=== PATIENT | female | born 1995 | race Caucasian/White ===

== ENCOUNTER 2017-10-24 16:48 | Emergency (ER) | payer OTHER ==
[2017-10-24] MEDS ORDERED: HYDROcod/ACETAM 5/325 MG TABLET PO STA ×2 (17:00→19:07)
--- NOTE | 2017-10-24 17:02 | ED Physician Documentation ---
PD HPI BACK PAIN - Stated complaint Stated Complaint: LOWER BACK PX - Chief complaint Chief Complaint: Back Pain - History obtained from History obtained from: Patient, Family () - History of Present Illness Timing - onset: Other (About 3 days of bilateral flank pain radiating like a band across the back. There was no antecedent injury. She says it feels like prior renal colic which she has had several times including bilateral renal colic at the same time. She has not been nauseous. There is a possibility of , she had an IUD removed about 2 months ago and they are not using any protection other than pulling out.) Review of Systems Ten Systems: 10 systems reviewed and negative Constitutional: denies: Fever, Chills GI: denies: Abdominal Pain, Nausea, Vomiting, Diarrhea : reports: Frequency. denies: Dysuria PD PAST MEDICAL HISTORY - Present Medications Home Medications: Ambulatory Orders Medication Instructions Recorded Confirmed HYDROcod/ACETAM 5/325 [[place] 5/325] 1 - 2 ea PO Q6H PRN #15 tablet 10/24/17 Ibuprofen [Motrin] 800 mg PO Q8H PRN #30 tablet 10/24/17 Ondansetron HCl [Zofran] 4 mg PO Q6H PRN #10 tablet 10/24/17 - Allergies Allergies/Adverse Reactions: Allergies Allergy/AdvReac Type Severity Reaction Status Date / Time No Known Drug Allergies Allergy Verified 10/24/17 16:59 PD ED PE NORMAL - Vitals Vital signs reviewed: Yes - General General: Alert and oriented X 3, No acute distress - Cardiac Cardiac: RRR, No murmur - Respiratory Respiratory: No respiratory distress, Clear bilaterally - Abdomen Abdomen: Normal bowel sounds, Soft, Non tender - Back Back: No spinal TTP, Other (Mild bilateral flank tenderness) - Neuro Neuro: Alert and oriented X 3, Normal speech - Psych Psych: Normal mood, Normal affect Results - Vitals Vitals: Vital Signs - 24 hr 10/24/17 10/24/17 16:56 21:49 Temperature 36.7 C 37.1 C Heart Rate 116 H 89 Respiratory 20 20 Rate Blood Pressure 157/87 H 125/72 O2 Saturation 98 100 Oxygen O2 Source Room air - Labs Labs: Laboratory Tests 10/24/17 10/24/17 10/24/17 17:12 17:12 17:12 WBC 13.0 H RBC 5.28 Hgb 15.3 Hct 46.0 MCV 87.1 MCH 29.0 MCHC 33.3 RDW 13.2 Plt Count 431 MPV 7.6 L Neut # 10.0 H Lymph # 2.1 [place] # 0.7 Eos # 0.1 Baso # 0.1 Absolute Nucleated RBC 0.00 Nucleated RBC % 0.0 Sodium 140 Potassium 3.7 Chloride 102 Carbon Dioxide 21 Anion Gap 17.0 H BUN 16 Creatinine 0.8 Estimated GFR (MDRD) 90 Glucose 88 Calcium 9.5 Total Bilirubin 0.5 AST 19 ALT 20 Alkaline Phosphatase 93 Total Protein 8.7 H Albumin 4.2 Globulin 4.5 H Albumin/Globulin Ratio 0.9 L Lipase 19 L Serum HCG, Qual NEGATIVE Urine Color Urine Clarity Urine pH Ur Specific [place] Urine Protein Urine Glucose (UA) Urine Ketones Urine Occult Blood Urine Nitrite Urine Bilirubin Urine Urobilinogen Ur Leukocyte Esterase Urine RBC Urine WBC Ur Squamous Epith Cells Amorphous Sediment Urine Bacteria Urine Mucus Ur Microscopic Review Urine Culture Comments 10/24/17 21:15 WBC RBC Hgb Hct MCV MCH MCHC RDW Plt Count MPV Neut # Lymph # [place] # Eos # Baso # Absolute Nucleated RBC Nucleated RBC % Sodium Potassium Chloride Carbon Dioxide Anion Gap BUN Creatinine Estimated GFR (MDRD) Glucose Calcium Total Bilirubin AST ALT Alkaline Phosphatase Total Protein Albumin Globulin Albumin/Globulin Ratio Lipase Serum HCG, Qual Urine Color YELLOW Urine Clarity CLEAR Urine pH 6.0 Ur Specific [place] >=1.030 H Urine Protein NEGATIVE Urine Glucose (UA) NEGATIVE Urine Ketones 15 H Urine Occult Blood SMALL H Urine Nitrite NEGATIVE Urine Bilirubin NEGATIVE Urine Urobilinogen 0.2 (NORMAL) Ur Leukocyte Esterase NEGATIVE Urine RBC 6-10 H Urine WBC 0-3 Ur Squamous Epith Cells MOD Squamous H Amorphous Sediment Few Urine Bacteria Rare Urine Mucus Few Strands Ur Microscopic Review INDICATED Urine Culture Comments NOT INDICATED - Rads (name of study) CT KUB Radiology: EMP read contemporaneously (Bilateral renal stones without ureteral stone, diverticula.) PD MEDICAL DECISION MAKING - ED course ED course: 22-year-old woman presents with bilateral flank pain, most consistent with musculoskeletal etiology. Normal neurologic exam. She does have a history of renal colic and feels like this is similar though. There was some odd behaviors of this patient and her who are notably new to the area including requesting catheterized urinalysis well in triage which I find a little unnerving in this otherwise healthy 22-year-old woman. She persistently refused to be able to urinate here and persistently requesting urinary catheterization. She claims to vomited shortly after taking the Vicodin and requested it be repeated, although nobody saw her vomit. This was followed by IM Toradol and P.o. Zofran. CT was obtained after negative serum test showing no ureteral calculi. The diverticula noted are not consistent with her current clinical presentation. On repeat examination prior to discharge she had significant improvement in her vital signs, both the tachycardia and hypertension and had passed an oral challenge. Departure - Departure Disposition: Home, Self Care Clinical Impression: Back pain Qualifiers: Back pain location: low back pain Chronicity: acute Back pain laterality: bilateral Sciatica presence: without sciatica Qualified Code(s): M54.5 - Low back pain Condition: Good Record reviewed to determine appropriate education?: Yes Instructions: ED Spasm Back No Trauma Prescriptions: HYDROcod/ACETAM 5/325 [[place] 5/325] 1 - 2 ea PO Q6H PRN #15 tablet PRN Reason: Pain Ibuprofen [Motrin] 800 mg PO Q8H PRN #30 tablet PRN Reason: PAIN &/OR FEVER Ondansetron HCl [Zofran] 4 mg PO Q6H PRN #10 tablet PRN Reason: Nausea / Vomiting Comments: Call your doctor to arrange a follow-up appointment, make the next available appointment. In the interim, return anytime if worse or if new symptoms develop. Your blood pressure was elevated today on check into the emergency department. This does not mean that you have hypertension, it is a common phenomenon to come to the emergency department and have elevated blood pressure. I recommend that you see your primary care physician within the week to have it rechecked when you are feeling better. Discharge Date/Time: 10/24/17 21:53
[2017-10-24 17:19] LABS: BASOPHILS # (AUTO) 0.1 10^3/uL (0.0-0.1); BASOPHILS % (AUTO) 0.4 %; EOSINOPHILS # (AUTO) 0.1 10^3/uL (0.0-0.7); EOSINOPHILS % (AUTO) 0.6 %; HGB - HEMOGLOBIN 15.3 g/dL (12.0-16.0); LYMPHOCYTES # (AUTO) 2.1 10^3/uL (1.5-3.5); LYMPHOCYTES % (AUTO) 16.1 %; MEAN CORPUSCULAR HGB CONC 33.3 g/dL (32.0-36.0); MEAN CORPUSCULAR VOLUME 87.1 fL (81.0-99.0); MEAN PLATELET VOLUME 7.6 fL (7.9-10.8); MONOCYTES # (AUTO) 0.7 10^3/uL (0.0-1.0); MONOCYTES % (AUTO) 5.6 %; NEUTROPHILS % (AUTO) 77.3 %; PLT - PLATELET COUNT 431 10^3/uL (130-450); RED BLOOD COUNT 5.28 10^6/uL (4.20-5.40); RED CELL DISTRIBUTION WIDTH 13.2 % (12.0-15.0)
[2017-10-24 17:31] LABS: ALBUMIN 4.2 g/dL (3.2-5.5); ALBUMIN/GLOBULIN RATIO 0.9 (1.0-2.2); BILIRUBIN,TOTAL 0.5 mg/dL (0.2-1.0); CALCIUM 9.5 mg/dL (8.5-10.3); CREATININE 0.8 mg/dL (0.4-1.0); TOTAL PROTEIN 8.7 g/dL (6.7-8.2)
[2017-10-24] MEDS ORDERED: ONDANSETRON ODT 4 MG TABLET TL STA (17:58)
[2017-10-24] MEDS ORDERED: KETOROLAC 60 MG/2 ML VIAL IM STA (17:59)
[2017-10-24 19:02] LABS: HCG,QUALITATIVE BLOOD NEGATIVE
--- NOTE | 2017-10-24 20:17 | CT Preliminary Report ---
Exam: CT ABDOMEN/PELVIS W/O IMPRESSION: 1. Nonobstructing bilateral renal stones. No obstructing ureteral stone. 2. Diverticula. Mildly prominent bowel wall thickness of the sigmoid and left colon in a incompletely distended segment of bowel. Long segment involvement with incomplete distention and minimal if any p ericolonic inflammation suggest that this is artifactual due to incomplete distention. Correlate clin ically for colitis symptoms. Normal appendix. [facility] SITE ID: [id number]
--- NOTE | 2017-10-24 21:11 | CT Report ---
EXAM: CT ABDOMEN AND PELVIS (CT KUB) EXAM DATE: 10/24/2017 07:36 PM. CLINICAL HISTORY: Flank pain. COMPARISONS: None. TECHNIQUE: Routine axial helical CT imaging was performed through the abdomen and pelvis without IV c ontrast. Reconstructions: Coronal and sagittal. In accordance with CT protocol optimization, one or more of the following dose reduction techniques w ere utilized for this exam: automated exposure control, adjustment of mA and/or KV based on patient s ize, or use of iterative reconstructive technique. FINDINGS: Lung Bases: Lung bases are clear. Incidental small hiatal hernia noted. Right Kidney/Ureter: 3 mm anterior right and 2 mm mid right nonobstructing renal stones. No hydroneph rosis, hydroureter or perinephric fat stranding. Left Kidney/Ureter: 2 mm mid left nonobstructing renal stone. No hydronephrosis, hydroureter or perin ephric fat stranding. Other Solid Organs: Noncontrast images of the solid organs are grossly unremarkable. Gallbladder/Bile Ducts: Unremarkable. Peritoneal Cavity: No free fluid, free air or [place] adenopathy. Bowel is grossly unremarkable. Diffus e colonic diverticula are noted. The left colon, distal transverse and sigmoid colon are incompletely distended likely accentuating the bowel wall thickness. Minimal pericolonic stranding is noted in th e region of the proximal sigmoid colon. Normal appendix. Pelvic Organs: No bladder stones or wall thickening. Noncontrast images of the visualized pelvic orga ns are unremarkable. Vasculature: Unremarkable. Other: None. IMPRESSION: 1. Nonobstructing bilateral renal stones. No obstructing ureteral stone. 2. Diverticula. Mildly prominent bowel wall thickness of the sigmoid and left colon in a incompletely distended segment of bowel. Long segment involvement with incomplete distention and minimal if any p ericolonic inflammation suggests that this is artifactual due to incomplete distention. Correlate cli nically for colitis symptoms. Normal appendix. [facility] Referring Provider Line: [phone] SITE ID: [id number]
[2017-10-24 21:32] LABS: BILIRUBIN,URINE NEGATIVE (NEGATIVE); GLUCOSE, URINE (UA) NEGATIVE (NEGATIVE); KETONES,URINE (UA) 15 mg/dL (NEGATIVE); LEUKOCYTE ESTERASE, URINE NEGATIVE (NEGATIVE); NITRITE,URINE NEGATIVE (NEGATIVE); OCCULT BLOOD,URINE SMALL (NEGATIVE); PROTEIN,URINE NEGATIVE (NEGATIVE); UROBILINOGEN,URINE 0.2 (NORMAL) E.U./dL (NORMAL)
[2017-10-24 21:34] LABS: CLARITY,URINE CLEAR (CLEAR)
[2017-10-24] MEDS ORDERED: HYDROcod/ACET 5/325 Prepack 6 PO STA (21:43)
[2017-10-24] MEDS ORDERED: ONDANSETRON ODT 4 MG Prepack 2 TL STA (21:43)
[2017-10-24 21:49] VITALS: BP 125/72
[2017-10-24 21:59] LABS: AMORPHOUS SEDIMENT,UR Few /LPF; BACTERIA,URINE Rare /HPF (None Seen); MUCUS,URINE Few Strands; SQUAMOUS EPITHELIAL CELL,UR MOD Squamous (<= Few)
== END 2017-10-24 21:53 | disposition home or self-care (01) ==
LOC: ED 16:48
DX: M54.5 Low back pain (principal); R03.0 Elevated blood-pressure reading, without diagnosis of hypertension
CPT/HCPCS: 36415; 51798; 74176; 80053; 81001; 83690; 84703; 85025; 96372; 99283; A9270; Q0162; 81003; 87086

== ENCOUNTER 2018-01-21 22:12 | Outpatient (CLI) | payer OTHER | END 2018-01-21 22:13 | disposition critical access hospital (66) | LOC: EMS 22:12 | PROVIDERS: ATTEND Surgery | DX: R07.9 Chest pain, unspecified (principal); R11.0 Nausea; R42 Dizziness and giddiness | CPT/HCPCS: A0425; A0429 ==

== ENCOUNTER 2018-01-21 22:33 | Emergency (ER) | payer OTHER ==
[2018-01-21 22:58] LABS: BASOPHILS # (AUTO) 0.1 10^3/uL (0.0-0.1); BASOPHILS % (AUTO) 0.7 %; EOSINOPHILS # (AUTO) 0.2 10^3/uL (0.0-0.7); EOSINOPHILS % (AUTO) 1.3 %; HGB - HEMOGLOBIN 13.9 g/dL (12.0-16.0); LYMPHOCYTES # (AUTO) 2.4 10^3/uL (1.5-3.5); LYMPHOCYTES % (AUTO) 20.4 %; MEAN CORPUSCULAR HGB CONC 32.5 g/dL (32.0-36.0); MEAN CORPUSCULAR VOLUME 86.2 fL (81.0-99.0); MEAN PLATELET VOLUME 7.5 fL (7.9-10.8); MONOCYTES # (AUTO) 1.1 10^3/uL (0.0-1.0); MONOCYTES % (AUTO) 9.2 %; NEUTROPHILS % (AUTO) 68.4 %; PLT - PLATELET COUNT 384 10^3/uL (130-450); RED BLOOD COUNT 4.96 10^6/uL (4.20-5.40); RED CELL DISTRIBUTION WIDTH 12.9 % (12.0-15.0); WHITE BLOOD COUNT 11.7 x10^3/uL (4.8-10.8)
[2018-01-21 23:10] LABS: ALBUMIN 3.8 g/dL (3.2-5.5); ALBUMIN/GLOBULIN RATIO 0.9 (1.0-2.2); ALKALINE PHOSPHATASE 98 IU/L (42-121); ALT ALANINE AMINOTRANSFERASE 31 IU/L (10-60); AST ASPARTATE AMINOTRANSFERASE 25 IU/L (10-42); BILIRUBIN,TOTAL 0.2 mg/dL (0.2-1.0); BUN - BLOOD UREA NITROGEN 22 mg/dL (6-20); CALCIUM 9.1 mg/dL (8.5-10.3); CARBON DIOXIDE - CO2 25 mmol/L (21-32); CHLORIDE 105 mmol/L (101-111); CREATININE 0.7 mg/dL (0.4-1.0); GFR - MDRD 105 (>89); GLUCOSE 113 mg/dL (70-100); LIPASE 26 U/L (22-51); SODIUM 137 mmol/L (135-145)
--- NOTE | 2018-01-21 23:15 | ED Physician Documentation ---
History of Present Illness - Stated complaint Stated Complaint: CP, RACING HEART SP MEDS - Chief complaint Chief Complaint: Cardiac - History obtained from History obtained from: Patient, EMS - History of Present Illness Timing: Today - Additonal information Additional information: Patient is a 22 year old female with a history of anxiety and depression who is presenting to the hospital for racing heart beat. patient states that she took her antidepressant tonight for the first time in awhile and feels like she developed right sided chest pain and nausea so patient called ems. Upon initial evaluation in the emergency department patient was awake, alert and in no distress. Review of Systems Constitutional: denies: Fever, Chills Eyes: reports: Reviewed and negative Ears: reports: Reviewed and negative Nose: denies: Rhinorrhea / runny nose Cardiac: reports: Palpitations. denies: Chest pain / pressure Respiratory: denies: Dyspnea, Cough, Wheezing GI: reports: Abdominal Pain, Nausea. denies: Vomiting, Constipation, Diarrhea : denies: Dysuria, Frequency, Hesitancy Skin: denies: Rash, Lesions Neurologic: denies: Generalized weakness, Focal weakness, Syncope, Headache Psychiatric: reports: Anxiety Immunocompromised: denies: Immunocompromised PD PAST MEDICAL HISTORY - Past Medical History Past Medical History: Yes : Kidney stones Psych: Anxiety - Past Surgical History Past Surgical History: Yes - Present Medications Home Medications: Ambulatory Orders Medication Instructions Recorded Confirmed Albuterol Sulfate [Proair Hfa 1 - 2 puffs INH PRN PRN 01/21/18 01/21/18 Inhaler] Venlafaxine ER [Effexor ER] 150 mg PO DAILY 01/21/18 01/21/18 - Allergies Allergies/Adverse Reactions: Allergies Allergy/AdvReac Type Severity Reaction Status Date / Time No Known Drug Allergies Allergy Verified 01/21/18 22:39 - Social History Does the pt smoke?: Yes Smoking Status: Current every day smoker Does the pt drink ETOH?: Yes Does the pt have substance abuse?: Yes - Immunizations Immunizations are current?: Yes - POLST Patient has POLST: No PD ED PE NORMAL - Vitals Vital signs reviewed: Yes - General General: Alert and oriented X 3, No acute distress - HEENT HEENT: Atraumatic, PERRL - Cardiac Cardiac: RRR - Respiratory Respiratory: No respiratory distress - Abdomen Abdomen: Soft - Derm Derm: Normal color, No rash - Extremities Extremities: No deformity - Neuro Neuro: Alert and oriented X 3, No motor deficit, Normal speech Eye Opening: Spontaneous Motor: Obeys Commands Verbal: Oriented GCS Score: 15 Results - Vitals Vitals: Vital Signs - 24 hr 01/21/18 01/21/18 01/21/18 22:34 22:40 23:18 Temperature 36.7 C Heart Rate 104 H 89 Respiratory 16 16 Rate Blood Pressure 138/94 H 125/77 Blood Pressure 138/94 H [Right] O2 Saturation 97 97 01/22/18 00:02 Temperature Heart Rate 94 Respiratory 20 Rate Blood Pressure 118/89 H Blood Pressure [Right] O2 Saturation 97 Oxygen O2 Source Room air - EKG (time done) 2240 Rate: Rate (enter#) (102) Rhythm: Sinus tachycardia [place]: Normal Intervals: Normal [place] QRS: Normal Ischemia: Normal ST segments Compare to prior EKG: Old EKG unavailable - Labs Labs: Laboratory Tests 01/21/18 01/21/18 01/21/18 22:51 22:51 23:25 WBC 11.7 H RBC 4.96 Hgb 13.9 Hct 42.7 MCV 86.2 MCH 28.0 MCHC 32.5 RDW 12.9 Plt Count 384 MPV 7.5 L Neut # 8.0 H Lymph # 2.4 [place] # 1.1 H Eos # 0.2 Baso # 0.1 Absolute Nucleated RBC 0.00 Nucleated RBC % 0.0 Sodium 137 Potassium 3.7 Chloride 105 Carbon Dioxide 25 Anion Gap 7.0 BUN 22 H Creatinine 0.7 Estimated GFR (MDRD) 105 Glucose 113 H Calcium 9.1 Total Bilirubin 0.2 AST 25 ALT 31 Alkaline Phosphatase 98 Total Protein 8.0 Albumin 3.8 Globulin 4.2 Albumin/Globulin Ratio 0.9 L Lipase 26 Urine Color YELLOW Urine Clarity CLEAR Urine pH 5.5 Ur Specific [place] >=1.030 H Urine Protein NEGATIVE Urine Glucose (UA) NEGATIVE Urine Ketones TRACE Urine Occult Blood SMALL H Urine Nitrite NEGATIVE Urine Bilirubin NEGATIVE Urine Urobilinogen 0.2 (NORMAL) Ur Leukocyte Esterase SMALL H Urine RBC 0-5 Urine WBC 4-5 Ur Squamous Epith Cells MOD Squamous H Urine Bacteria Moderate H Ur Microscopic Review INDICATED Urine Culture Comments NOT INDICATED Urine HCG, Qual Urine Opiates Screen NEGATIVE Ur Oxycodone Screen NEGATIVE Urine Methadone Screen NEGATIVE Ur Propoxyphene Screen NEGATIVE Ur Barbiturates Screen NEGATIVE Ur Tricyclics Screen NEGATIVE Ur Phencyclidine Scrn NEGATIVE Ur Amphetamine Screen NEGATIVE U Methamphetamines Scrn NEGATIVE U Benzodiazepines Scrn NEGATIVE Urine Cocaine Screen NEGATIVE U Cannabinoids Screen NEGATIVE Ethyl Alcohol < 5.0 01/21/18 23:25 WBC RBC Hgb Hct MCV MCH MCHC RDW Plt Count MPV Neut # Lymph # [place] # Eos # Baso # Absolute Nucleated RBC Nucleated RBC % Sodium Potassium Chloride Carbon Dioxide Anion Gap BUN Creatinine Estimated GFR (MDRD) Glucose Calcium Total Bilirubin AST ALT Alkaline Phosphatase Total Protein Albumin Globulin Albumin/Globulin Ratio Lipase Urine Color Urine Clarity Urine pH Ur Specific [place] >1.030 Urine Protein Urine Glucose (UA) Urine Ketones Urine Occult Blood Urine Nitrite Urine Bilirubin Urine Urobilinogen Ur Leukocyte Esterase Urine RBC Urine WBC Ur Squamous Epith Cells Urine Bacteria Ur Microscopic Review Urine Culture Comments Urine HCG, Qual NEGATIVE Urine Opiates Screen Ur Oxycodone Screen Urine Methadone Screen Ur Propoxyphene Screen Ur Barbiturates Screen Ur Tricyclics Screen Ur Phencyclidine Scrn Ur Amphetamine Screen U Methamphetamines Scrn U Benzodiazepines Scrn Urine Cocaine Screen U Cannabinoids Screen Ethyl Alcohol PD MEDICAL DECISION MAKING - ED course Complexity details: reviewed old records, reviewed results, re-evaluated patient , considered differential, d/w patient ED course: Patient was seen and examined at bedside. patient was well appearing and in no acute distress. ekg was performed and showed sinus tach, but patient's heart rate improved to 88 on its own once she settled down. patient's diagnostics were all within normal limits. Patient had no facial swelling, rash, wheezing or any sing of systemic reaction. Patient required no further work up and was stable for discharge with outpatient follow up. Departure - Departure Disposition: 01 Home, Self Care Clinical Impression: Acute stress reaction Condition: Good Instructions: Stress [place] Manage Follow-Up: MARY GRAY PA-C [Primary Care Provider] - As Needed Comments: Your diagnostics today were within normal limits. It was unlikely an allergic reaction and more likely due to stress and anxiety. You should continue with your medications and follow up with your doctor for further care. You may return to the emergency department at any time for new, worsening or uncontrollable symptoms.
[2018-01-21 23:34] LABS: BILIRUBIN,URINE NEGATIVE (NEGATIVE); GLUCOSE, URINE (UA) NEGATIVE (NEGATIVE); KETONES,URINE (UA) TRACE mg/dL (NEGATIVE); LEUKOCYTE ESTERASE, URINE SMALL (NEGATIVE); MUDS CUTOFF CONCENTRATIONS CUTOFF CONC BELOW:; NITRITE,URINE NEGATIVE (NEGATIVE); OCCULT BLOOD,URINE SMALL (NEGATIVE); PH,URINE 5.5 PH (5.0-7.5); PROTEIN,URINE NEGATIVE (NEGATIVE); UROBILINOGEN,URINE 0.2 (NORMAL) E.U./dL (NORMAL)
[2018-01-21 23:37] LABS: CLARITY,URINE CLEAR (CLEAR)
[2018-01-21 23:42] LABS: BACTERIA,URINE Moderate /HPF (None Seen); HCG UR QUAL NEGATIVE; RBC,URINE 0-5 /HPF (0-5); SQUAMOUS EPITHELIAL CELL,UR MOD Squamous (<= Few)
[2018-01-21 23:44] LABS: AMPHETAMINE SCREEN,URINE NEGATIVE (NEGATIVE); BENZODIAZEPINES SCREEN, URINE NEGATIVE (NEGATIVE); COCAINE SCREEN URINE NEGATIVE (NEGATIVE); METHADONE SCREEN, URINE NEGATIVE (NEGATIVE); METHAMPHETAMINES SCREEN, URINE NEGATIVE (NEGATIVE); OPIATE SCREEN, URINE NEGATIVE (NEGATIVE); OXYCODONE SCREEN, URINE NEGATIVE (NEGATIVE); PROPOXYPHENE SCREEN, URINE NEGATIVE (NEGATIVE); TRICYCLIC ANTIDEPRESSANT,URINE NEGATIVE (NEGATIVE)
[2018-01-22 00:03] VITALS: BP 118/89
== END 2018-01-22 00:05 | disposition home or self-care (01) ==
LOC: EDUNIT# → ED 22:33
DX: F43.0 Acute stress reaction (principal); F41.9 Anxiety disorder, unspecified; F17.200 Nicotine dependence, unspecified, uncomplicated
CPT/HCPCS: 36415; 80053; 80306; 80320; 81001; 81003; 81025; 83690; 85025; 87086; 93005; 99283